=== PATIENT | female | born 1960 | race Caucasian/White ===

== ENCOUNTER 2018-09-07 01:44 | Emergency (ER) | payer OTHER, SELFPAY ==
[2018-09-07] MEDS ORDERED: TORAdol 30 mg Injection IM ONE (02:31)
--- NOTE | 2018-09-07 02:39 | ERPHSYRPT ---
- History of Present Illness Time Seen by Provider: 09/07/18 02:24 Source: patient Exam Limitations: no limitations Patient Subjective Stated Complaint: Pt states "I was walking the dog and he took off between my legs and knocked me over." Triage Nursing Assessment: Pt alert and oriented X 3, skin pwd. Pt left ankle swollen, tender, slight bruising noted. Physician History: 58-year-old white female who states that she is previously healthy arrives with complaint of pain in her left ankle since just prior to arrival according to the patient she was walking the dog when the dog knocked her over she has pain and swelling in her left ankle laterally. Patient does state that she has a fracture of her left ankle approximately 3 years ago. Past medical history is negative except for left ankle fracture. Past surgical history is positive for back surgery. Social history patient is positive for tobacco use she denies alcohol or illicit drug use. Method of Injury: fell Occurred: just prior to arrival Severity of Pain-Max: moderate Severity of Pain-Current: moderate Lower Extremities Pain: ankle: left Modifying Factors: Improves With: movement Associated Symptoms: other (pain left ankle, swelling left ankle left ankle) Allergies/Adverse Reactions: codeine [Codeine] Allergy (Mild, Verified 06/25/15 18:28) Sulfa (Sulfonamide Antibiotics) [Sulfa(Sulfonamide Antibiotics)] Allergy (Mild, Verified 06/25/15 18:28) Home Medications: No Reportable Medications [No Reported Medications] 09/07/18 [History] Hx Tetanus, Diphtheria Vaccination/Date Given: No Hx Influenza Vaccination/Date Given: No Hx Pneumococcal Vaccination/Date Given: No Immunizations Up to Date: Yes - Review of Systems Constitutional: No Fever, No Chills Eyes: No Symptoms Ears, Nose, & Throat: No Symptoms Respiratory: No Cough, No Dyspnea Cardiac: No Chest Pain, No Edema, No Syncope Abdominal/Gastrointestinal: No Abdominal Pain, No Nausea, No Vomiting, No Diarrhea Genitourinary Symptoms: No Dysuria Musculoskeletal: Fall, Injury, Joint Pain (Left ankle pain), Joint Swelling ( swelling left lateral ankle), No Back Pain, No Neck Pain, No Deformity, No Joint Redness, No Myalgias Skin: No Rash Neurological: No Dizziness, No Focal Weakness, No Sensory Changes Psychological: No Symptoms Endocrine: No Symptoms All Other Systems: Reviewed and Negative - Past Medical History Pertinent Past Medical History: No - Past Surgical History Past Surgical History: Yes Neuro Surgical History: No Pertinent History Cardiac: No Pertinent History Respiratory: No Pertinent History Gastrointestinal: No Pertinent History Genitourinary: No Pertinent History Musculoskeletal: Other Female Surgical History: No Pertinent History Other Surgical History: BACK SURGURY - Social History Smoking Status: Current every day smoker How long have you smoked: years Exposure to second hand smoke: Yes Drug Use: none Patient Lives Alone: No - Female History Hx Last Menstrual Period: none Hx Now: No - Nursing Vital Signs Nursing Vital Signs: Initial Vital Signs Temperature 99.4 F 09/07/18 01:49 Pulse Rate 98 H 09/07/18 01:49 Respiratory Rate 18 09/07/18 01:49 Blood Pressure 155/92 09/07/18 01:49 O2 Sat by Pulse Oximetry 97 09/07/18 01:49 Pain Scale Pain Intensity 7 - Physical Exam General Appearance: mild distress Eyes, Ears, Nose, Throat Exam: moist mucous membranes Neck Exam: non-tender, supple Cardiovascular/Respiratory Exam: chest non-tender, normal breath sounds, regular rate/rhythm, no respiratory distress Gastrointestinal/Abdominal Exam: non-tender, guarding Back Exam: normal inspection, No vertebral tenderness Hips Exam: bilateral: non-tender, normal inspection, normal range of motion, no evidence of injury Legs Exam: bilateral leg: non-tender, normal inspection, normal range of motion , no evidence of injury Knees Exam: bilateral knee: non-tender, normal inspection, normal range of motion, no evidence of injury Ankle Exam: right ankle: non-tender, normal inspection, normal range of motion, no evidence of injury, left ankle: bone tenderness (tender left lateral ankle with palpation and movemen), swelling (swelling left lateral ankle) Foot Exam: bilateral foot: non-tender, normal inspection, normal range of motion , no evidence of injury DTR - Lower Extremities Exam: ankle (R): 2+, ankle (L): 2+ Neuro/Tendon Exam: normal sensation, normal motor functions Mental Status Exam: alert, oriented x 3, cooperative Skin Exam: normal color, warm, dry SpO2 Interpretation: normal (97%) SpO2: 97 Oxygen Delivery: Room Air - Course Nursing assessment & vital signs reviewed: Yes - Radiology Exams Left Ankle X-ray Interpretation: Interpreted by me (cortical fracture left lateral ankle, no subluxation) Ordered Tests: Active Orders 24 hr Category Date Time Status Crutches STAT Care 09/07/18 02:31 Active Splint STAT Care 09/07/18 02:31 Active ANKLE (3 VIEWS) Stat Exams 09/07/18 Ordered Medication Summary Generic Name Dose Route Start Last Admin Trade Name Dany PRN Reason Stop Dose Admin Ketorolac Tromethamine 60 mg 09/07/18 02:31 Toradol 30 Mg Injection IM 09/07/18 02:32 STAT ONE - Progress Progress: improved Progress Note: 09/07/18 02:37 58-year-old white female arrives with complaint of pain and swelling left lateral ankle . According to the patient just prior to arrival she was knocked over by her dog she twisted her left ankle. She is complaining of pain and swelling in her left lateral ankle. She does have a history of a fracture of her left ankle approximately 3 years ago overlying the fibula. X-ray of the left ankle is remarkable for cortical fracture of the left distal fibula laterally. Will go ahead and place a splint on the patient's ankle place her on crutches. Will give patient a shot of Toradol 60 mg IM. Patient does not want any other pain medication she states she will take Advil or Tylenol at home. Patient will be referred to [facility] orthopedic bone clinic. Or she may follow-up with her family doctor tomorrow. Him to hurt him - Departure Time of Disposition: 02:38 Departure Disposition: Home Clinical Impression: Left fibular fracture Qualifiers: Encounter type: initial encounter Fibula location: lateral malleolus Fracture type: closed Fracture alignment: nondisplaced Qualified Code(s): S82.65XA - Nondisplaced fracture of lateral malleolus of left fibula, initial encounter for closed fracture Condition: Fair Critical Care Time: No Referrals: JOE CORRALES [Primary Care Provider] - Instructions: Ankle Fracture (DC) Additional Instructions: Return home. Ice and elevate your left ankle 24-48 hours. Crutches. Follow-up with [facility] orthopedic clinic ([facility]) tomorrow morning at 8:30 AM. Or follow-up with your family doctor or follow-up with your orthopedist. Return for acute distress or for severe symptoms. Advil every 6 hours as needed for pain Tylenol every 4 hours as needed for pain.
[2018-09-07] MEDS ORDERED: TORAdol 30 mg Injection ONE (02:46)
[2018-09-07 02:47] VITALS: BP 145/90; PULSE 90; O2SAT 99
--- NOTE | 2018-09-07 09:05 | XRAY ---
Indication: Pain/swelling following fall. Comparison: June 25, 2015. 3 views of the left ankle demonstrates nondisplaced oblique lateral malleolus fracture with soft tissue swelling. Incidental tiny plantar heel spur. No other bony, articular, or soft tissue abnormalities.
== END 2018-09-07 03:01 | disposition home or self-care (01) ==
LOC: ED 01:44
DX: S82.62XA Displaced fracture of lateral malleolus of left fibula, initial encounter for closed fracture (principal); X50.1XXA Overexertion from prolonged static or awkward postures, initial encounter; Y93.K1 Activity, walking an animal
CPT/HCPCS: 73610; 96372; 99284; J1885